=== PATIENT | male | born 1985 | race Caucasian/White ===

== ENCOUNTER 2019-06-11 15:24 | Emergency (ER) | payer SELFPAY ==
[~2019-06-11] VITALS: Ht 177.8 cm; Wt 90.9 kg
[2019-06-11 16:30] VITALS: BP 127/61
[2019-06-11] MEDS ORDERED: CEPHALEXIN MONOHYDRATE 500 MG CAPSULE PO ONE (16:30)
[2019-06-11] MEDS ORDERED: SULFAMETHOX/TRIMETH DS 800-160 MG/TABLET PO ONE (16:30)
[2019-06-11] MEDS ORDERED: BACITRACIN 0.9 GM PACKET OINTMENT TP ONE (16:45)
== END 2019-06-11 17:19 | disposition home or self-care (01) ==
LOC: EMS 15:26
DX: L08.9 Local infection of the skin and subcutaneous tissue, unspecified (principal)